=== PATIENT | female | born 1965 | race Caucasian/White ===

== ENCOUNTER 2017-07-12 06:02 | Day surgery (SDC) | payer OTHER, MEDICAID ==
[2017-07-12] MEDS ORDERED: LR 1,000 ML IV ONE (06:12)
[2017-07-12] MEDS ORDERED: LIDOCAINE 1% 2 ML INJ ID PRN (06:12)
--- NOTE | 2017-07-12 07:04 | PDANEPAE ---
ANE Past Medical History - Cardiovascular History Hx Hypertension: Yes Hx Arrhythmias: No Hx Chest Pain: No Hx Coronary Artery / Peripheral Vascular Disease: No Hx CHF / Valvular Disease: No Hx Palpitations: No Cardiovascular History Comment: high chol. pcp monitors bp meds - Pulmonary History Hx COPD: Yes Hx Asthma/Reactive Airway Disease: Yes Hx Recent Upper Respiratory Infection: No Hx Oxygen in Use at Home: No Hx Sleep Apnea: No Sleep Apnea Screening Result - Last Documented: Negative Pulmonary History Comment: has been told she has onset of copd. 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 migraines - Endocrine History Hx Diabetes: No - Renal History Hx Renal Disorders: No - Liver History Hx Hepatic Disorders: No - Neurological & Psychiatric Hx Hx Neurological and Psychiatric Disorders: Yes Neurological / Psychiatric History Comment: severe anxiety and depression. ptsd - Cancer History Hx Cancer: No - Congenital Disorder History Hx Congenital Disorders: No - GI History Hx Gastrointestinal Disorders: Yes Gastrointestinal History Comment: reflux. ibs when she gets nervous - Other Health History Other Health History: wears reading glasses- dog recently ate them. unknown blood clotting disorder- she is supposed to f/u after surgery - Chronic Pain History Chronic Pain: Yes (bilateral pain to hands) - Surgical History Prior Surgeries: hysterectomy/ bso. previous dental surgery ANE Review of Systems Review of Systems: - Exercise capacity METS (RN): 4 METS ANE Patient History - Allergies Allergies/Adverse Reactions: acetaminophen Allergy (Verified 06/19/17 12:24) hives around ears, lips swelling amoxicillin Allergy (Verified 06/19/17 12:24) hives, lip swelling ampicillin Allergy (Verified 06/19/17 12:24) hives, lip swelling Latex, Natural Rubber Allergy (Verified 07/12/17 06:21) Penicillins Allergy (Verified 06/19/17 12:24) hives, lip swelling Sulfa (Sulfonamide Antibiotics) Allergy (Verified 06/19/17 12:24) itched like crazy, couldn't stop scratching tomato Allergy (Verified 06/19/17 12:24) mouth blisters up - Home Medications Home Medications: Albuterol Sulfate 06/19/17 [Last Taken 06/12/17] Aspirin 81mg (*) 06/19/17 [Last Taken 07/05/17] CLONAZEPAM 06/19/17 [Last Taken 07/05/17] Combivent Respimat Inhal [place](*) 06/19/17 [Last Taken 07/11/17] Losartan Potassium 06/19/17 [Last Taken 07/12/17] Meloxicam 06/19/17 [Last Taken 06/28/17] Pantoprazole Sodium 06/19/17 [Last Taken 07/12/17] Sertraline HCl 06/19/17 [Last Taken 07/05/17] - NPO status NPO Since - Liquids (Date): 07/12/17 NPO Since - Liquids (Time): 00:00 NPO Since - Solids (Date): 07/11/17 NPO Since - Solids (Time): 18:00 - Smoking Hx Smoking Status: Light smoker - Family Anes Hx Family Hx Anesthesia Complications: none ANE Labs/Vital Signs - Vital Signs Blood Pressure: 118/76 Heart Rate: 74 Respiratory Rate: 14 O2 Sat (%): 95 Height: 165.1 cm Weight: 81.647 kg ANE Physical Exam - Airway Mallampati Score: Class 2 Mouth exam: poor dentition - ASA Status ASA Status: III ANE Anesthesia Plan Anesthesia Plan: general endotracheal anesthesia
[2017-07-12] MEDS ORDERED: BUPIVACAINE 0.5% 10 ML SDV ONE (07:05)
[2017-07-12] MEDS ORDERED: LIDO/EPI 2%** Not for Epidural 20 ML MDV ONE (07:05)
[2017-07-12] MEDS ORDERED: CHLORHEXIDINE GLUCONATE 15 ML UDL ONE (07:06)
[2017-07-12] MEDS ORDERED: PROPOFOL 200 MG/20 ML VIAL ONE (07:12)
[2017-07-12] MEDS ORDERED: MIDAZOLAM 2 MG/2 ML VIAL ONE (07:12)
[2017-07-12] MEDS ORDERED: fentaNYL 100 MCG/2 ML INJ ONE (07:12)
[2017-07-12] MEDS ORDERED: ONDANSETRON 4 MG/2 ML VIAL ONE ×2 (07:13→09:53)
[2017-07-12] MEDS ORDERED: PHENYLEPHRINE 0.5% NASAL 15 ML SPRAY ONE (07:13)
[2017-07-12] MEDS ORDERED: METOCLOPRAMIDE 10 MG/2 ML VIAL ONE (07:13)
[2017-07-12] MEDS ORDERED: ROCURONIUM 50 MG/5 ML VIAL ONE (07:13)
[2017-07-12] MEDS ORDERED: LIDOCAINE 2% JELLY 5 ML TUBE ONE (07:13)
--- NOTE | 2017-07-12 07:14 | PDHPUP ---
History & Physical Update H&P update statement: This history and physical update is based on an assessment of the patient which was completed after admission or registration (within 24 hours), but prior to the surgery/procedure.
[2017-07-12] MEDS ORDERED: DEXAMETHASONE 10 MG/ML VIAL IVP ONE (07:15)
[2017-07-12] MEDS ORDERED: DEXAMETHASONE 4 MG/ML VIAL ONE ×2 (07:34)
[2017-07-12] MEDS ORDERED: SUGAMMADEX SODIUM 200 MG/2 ML VIAL IVP ONE (08:46)
[2017-07-12] MEDS ORDERED: NALOXONE HCL 0.4 MG/ML INJ IVP PRN (08:58)
[2017-07-12] MEDS ORDERED: ONDANSETRON 4 MG/2 ML VIAL IVP PRN (08:58)
[2017-07-12] MEDS ORDERED: LR 500 ML IV PRN (08:58)
[2017-07-12] MEDS ORDERED: PROMETHAZINE HCL 25 MG/ML INJ IVP PRN (08:58)
[2017-07-12] MEDS ORDERED: fentaNYL 100 MCG/2 ML INJ IVP PRN (08:58)
--- NOTE | 2017-07-12 08:59 | POSTANESTH ---
Post Anesthetic Evaluation Cardiovascular Status: Normal, Stable Respiratory Status: Normal, Stable Level of Consciousness/Mental Status: Can Participate in Eval Pain Control: Adequate, Prn Tx Ordered Nausea/Vomiting Control: Adequate, Prn Tx Ordered Complications Possibly Related to Anesthesia: None Noted
[2017-07-12 11:30] VITALS: BP 132/84
[2017-07-12] MEDS ORDERED: ONDANSETRON DISINTEGRATING 4 MG TAB ONE (12:04)
[2017-07-12] MEDS ORDERED: ONDANSETRON DISINTEGRATING 4 MG TAB PO ONE (12:15)
--- NOTE | 2017-08-08 09:17 | GOP ---
[f rep st] OPERATIVE REPORT DATE OF OPERATION: 07/12/2017 SURGEON: Tod Sorenson DDS PREOPERATIVE DIAGNOSIS: Dental caries. POSTOPERATIVE DIAGNOSIS: Dental caries. PROCEDURE PERFORMED: Extraction of maxillary and mandibular teeth. FINDINGS: dental decay ( rampant) SPECIMENS: None. ESTIMATED BLOOD LOSS: Minimal. INDICATIONS: This is a 52-year-old woman who has decayed teeth and is being fitted for dentures. She was medically compromised in the sense that she had multiple strokes, so she had this procedure performed in the operating room under monitored anesthesia. DESCRIPTION OF PROCEDURE: After the patient was consented in detail, the patient was taken to the operating room and was induced under general anesthesia and orotracheally intubated. She was prepped and draped in the standard oral and maxillofacial surgical fashion. Approximately 10 cc of 2% lidocaine with 1:100,000 epinephrine was infiltrated into her maxilla, and approximately 10 cc of the same was infiltrated into her mandible. All the remaining teeth were extracted, including #6, 7, 8, 9, 10, 11, 12, 18, 19, 20, 22, 23, 24, 25, 26, 27, 28, 29, and 30. A lingual flap was elevated on the left and the right and a Seldin retractor was introduced to protect the floor of the mouth. Bilateral lingual rasheed were removed using a saw and a bur. The area was then smoothed, copiously irrigated, and all wounds were closed with 4- 0 chromic gut suture. The patient was then turned over to the anesthesia service, where she was brought out of anesthesia. Her dentures were fitted into her mouth for pressure to prevent oozing, and she was extubated and sent to PACU in stable condition. DRAINS: None. /[id number]/MODL MTDD
== END 2017-07-12 12:20 | disposition home or self-care (01) ==
LOC: FSGY 06:02 → MERGE 06:02 → FSGY 11:50
PROVIDERS: ATTEND Dentist Oral and Maxillofacial Surgery
PROC: 0CDXXZ1 Extraction of Lower Tooth, Multiple, External Approach (ICD-10-PCS; principal; 2017-07-12 07:15)
PROC: 0CDWXZ1 Extraction of Upper Tooth, Multiple, External Approach (ICD-10-PCS; principal; 2017-07-12 07:15)
DX: K08.89 Other specified disorders of teeth and supporting structures (principal); D68.9 Coagulation defect, unspecified; J45.909 Unspecified asthma, uncomplicated; F17.210 Nicotine dependence, cigarettes, uncomplicated; I10 Essential (primary) hypertension; Z86.73 Personal history of transient ischemic attack (TIA), and cerebral infarction without residual deficits; F41.8 Other specified anxiety disorders; Z88.0 Allergy status to penicillin; Z88.2 Allergy status to sulfonamides
CPT/HCPCS: J1100; J2250; J2405; J2704; J2765; J3010